=== PATIENT | female | born 1995 | race Caucasian/White ===

== ENCOUNTER 2016-08-18 07:05 | Emergency (ER) | payer OTHER ==
[~2016-08-18] VITALS: Ht 162.6 cm; Wt 54.4 kg
[2016-08-18 07:09] VITALS: BP 112/75
[2016-08-18] MEDS ORDERED: [UNRECOGNIZED DRUG - CODE] PO (07:12)
[2016-08-18] MEDS ORDERED: CEPHALEXIN 500 MG CAP PO ONE (07:30)
[2016-08-18] MEDS ORDERED: NAPROXEN 250 MG TAB PO ONE (07:30)
[2016-08-18] MEDS ORDERED: DERMABOND TOPICAL SKIN ADHESIVE TOP ONE (07:30)
[2016-08-18] MEDS ORDERED: KEFL500C7 PO (07:53)
[2016-08-18] MEDS ORDERED: IBUP80TA PO (07:53)
== END 2016-08-18 08:13 | disposition home or self-care (01) ==
LOC: M ED 07:47
DX: S61.012A Laceration without foreign body of left thumb without damage to nail, initial encounter (principal); W26.9XXA Contact with unspecified sharp object(s), initial encounter; Y92.89 Other specified places as the place of occurrence of the external cause; Y93.G9 Activity, other involving cooking and grilling; Y99.0 Civilian activity done for income or pay